=== PATIENT | female | born 1945 | race Caucasian/White ===

== ENCOUNTER → 2017-03-31 | Outpatient (CLI) | payer OTHER ==
[2017-03-31 13:41] LABS: CREATININE 1.02 mg/dL (0.55-1.02)
--- NOTE | 2017-03-31 16:22 | MRI ---
HISTORY: Headaches, tremors. Study: MRI brain with and without contrast. Comparison: None. Technique: Multiplanar multi-sequence MRI of the brain was obtained. Sagittal T1, axial T1, axial T2 , axial flair images, coronal T1, sagittal T1 post contrast, coronal T1 postcontrast, axial T1 postco ntrast images were obtained. Findings: The midline structures appear intact. The posterior fossa is unremarkable. The sulcal markings of t he brain are normal in their appearance. Normal zhou-white differentiation is maintained. No eviden ce for intraparenchymal hemorrhage or mass can be identified. No extra-axial fluid collections or de la vega barachnoid hematoma can be seen. Evaluation of the diffusion weighted images demonstrates no evidenc e for acute ischemic change. The cerebral pontine angle is normal in its contour without evidence fo r mass. The ventricular system appears symmetric and nondilated. Mild mucosal thickening in the visu alized paranasal sinuses. The mastoid air cells appear clear. Postcontrast enhancement demonstrates no evidence for an enhancing lesion such as mass or vascular ma lformation. IMPRESSION: 1. Unremarkable MRI of the brain with and without contrast. 2. Sinus disease as above. Reported By:
== END ==
LOC: RAD 13:07
PROVIDERS: ATTEND Internal Medicine Hematology & Oncology
DX: R51 Headache (principal); R25.0 Abnormal head movements
CPT/HCPCS: 36415; 70553; 82565; 84520